=== PATIENT | female | born 1975 | race Caucasian/White ===

== ENCOUNTER 2018-10-10 10:42 | Emergency (ER) | payer MEDICAID, OTHER ==
[2018-10-10] MEDS: IBUPROFEN 800 MG TAB PO (11:47)
[2018-10-10] MEDS: HYDROCODONE/APAP (10/325) TAB PO (11:47)
[2018-10-10] MEDS: CYCLOBENZAPRINE 10 MG TAB PO (12:55)
[2018-10-10] MEDS ORDERED: CYCLOBENZAPRINE 10 MG TAB PO (13:00)
== END 2018-10-10 12:45 | disposition home or self-care (01) ==
LOC: E/R 10:42
DX: S20.212A Contusion of left front wall of thorax, initial encounter (principal); S13.4XXA Sprain of ligaments of cervical spine, initial encounter; V49.50XA Passenger injured in collision with unspecified motor vehicles in traffic accident, initial encounter
CPT/HCPCS: 71250; 72040; 81025; 99284-25